=== PATIENT | male | born 1945 | race Caucasian/White ===

== ENCOUNTER 2017-10-27 15:17 | Emergency (ER) | payer MEDICARE, BC ==
--- NOTE | 2017-10-27 17:00 | RAD ---
RIGHT ANKLE THREE VIEWS: History: 72-year-old male with right ankle pain following an injury, trip and fall. FINDINGS: There is diffuse soft tissue swelling medially and laterally. Severe degenerative changes of the ankl e joint, subtalar joints, and mid tarsals joints as well as prominent calcaneal plantar and Achilles enthesophytes. There are some tiny punctate minimally opaque nodular densities in the region of the a nterior tibiotalar joint, possibly multiple intraarticular bodies. No evidence for acute fracture or dislocation. The tibiotalar joint is slightly asymmetric in its appearance but I feel this is probabl y related to degenerative changes rather than acute injury. 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 Probable small intraarticular bodies. No overt acute fracture. Some asymmetry of the tibiotalar joint and ankle mortise, probably from degenerative origin. If the patient has ankle instability or p ersistent or worsening ankle pain, short term follow up study and/or additional imaging with MRI is r ecommended. POS: MARY
== END 2017-10-27 17:05 | disposition home or self-care (01) ==
LOC: ERS 15:17
DX: S93.401A Sprain of unspecified ligament of right ankle, initial encounter (principal); E78.5 Hyperlipidemia, unspecified; I10 Essential (primary) hypertension; X50.9XXA Other and unspecified overexertion or strenuous movements or postures, initial encounter

== ENCOUNTER 2018-03-04 06:21 | Emergency (ER) | payer MEDICARE, BC, OTHER ==
--- NOTE | 2018-03-04 07:55 | CT ---
CT BRAIN WITHOUT CONTRAST: Date: 03/04/18 HISTORY: Level II trauma, headache, neck pain. FINDINGS: Comparison made with exam of 09/12/16. 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 No evidence of acute infarct, hemorrhage, midline shift, or abnormal extra-axial fluid collections are seen. Ventri cular size is appropriate and the basilar cisterns are patent. The bony calvarium is intact. There is mucosal disease in the paranasal sinuses. IMPRESSION: No CT evidence of acute intracranial process. POS: OFF
--- NOTE | 2018-03-04 08:04 | CT ---
CT CERVICAL SPINE WITH CORONAL AND SAGITTAL REFORMATIONS: Date: 03/04/18 HISTORY: Level II trauma, pain in neck. FINDINGS/IMPRESSION: Multilevel degenerative changes are present in the cervical spine. No acute fracture or subluxation i s identified. POS: OFF
== END 2018-03-04 08:30 | disposition home or self-care (01) ==
LOC: ERS 06:21
DX: S16.1XXA Strain of muscle, fascia and tendon at neck level, initial encounter (principal); E78.5 Hyperlipidemia, unspecified; I10 Essential (primary) hypertension; V49.9XXA Car occupant (driver) (passenger) injured in unspecified traffic accident, initial encounter
CPT/HCPCS: 70450; 72125; G0390

== ENCOUNTER 2020-07-22 11:21 | Emergency (ER) | payer MEDICARE, BC ==
[2020-07-22 12:07] LABS: #Basophils 0.1 thou/uL (0.0-0.2); #Eosinphils 0.1 thou/uL (0.0-0.7); #Lymphocytes 2.1 thou/uL (1.20-3.40); #Monocytes 0.8 thou/uL (0.11-0.59); #Neutrophils 10.9 thou/uL (1.40-6.50); %Basophils 0.6 % (0.0-1.0); %Lymphocytes 14.6 % (21.0-51.0); %Monocytes 5.8 % (0.0-10.0); %Neutrophils 78.1 % (42.0-75.0); Hemoglobin 13.2 g/dL (14.0-18.0); Mean Corpuscular HGB CONC 32.1 g/dL (32.0-36.0); Mean Corpuscular Hemoglobin 30.4 pg (27.0-31.0); Mean Corpuscular Volume 94.7 fL (78.0-98.0); Mean Platelet Volume 7.8 fL (7.4-10.4); Platelet Count 340 thou/uL (130-400); RBC Distribution Width 11.3 % (11.5-14.5); Red Blood Cell (RBC) Count 4.34 mill/uL (4.70-6.10)
[2020-07-22] MEDS ORDERED: traMADol HCl 50 MG TAB ONE (12:14)
--- NOTE | 2020-07-22 12:17 | RAD ---
EXAM: Portable chest PROVIDED CLINICAL HISTORY: Syncope COMPARISON: 07/14/2020 FINDINGS: Cardiac and mediastinal silhouette is within normal limits. No focal consolidation, pleural fluid or pneumothorax evident. IMPRESSION: No evidence for an acute cardiopulmonary process.
[2020-07-22 12:25] LABS: ALT (SGPT) 54 U/L (8-55); AST (SGOT) 37 U/L (5-34); Albumin 3.4 g/dL (3.4-4.8); Alkaline Phosphatase 119 U/L (40-110); Anion Gap 13 mmol/L (10-20); BUN (Urea Nitrogen) 32 mg/dL (8.4-25.7); Bilirubin, Total 0.8 mg/dL (0.2-1.2); CK (CPK) 49 U/L (30-200); Calc. Creatinine Clearance 0 mL/min (70-130); Calcium 9.6 mg/dL (7.8-10.44); Carbon Dioxide 24 mmol/L (23-31); Chloride 105 mmol/L (98-107); Estimated GFR-MDRD 58; Globulin 3.6 g/dL (2.4-3.5); Glucose 122 mg/dL (83-110); Potassium 4.1 mmol/L (3.5-5.1); Sodium 138 mmol/L (136-145)
== END 2020-07-22 14:40 ==
LOC: ERS 11:21
DX: R55 Syncope and collapse (principal); E11.9 Type 2 diabetes mellitus without complications; K21.9 Gastro-esophageal reflux disease without esophagitis; E78.5 Hyperlipidemia, unspecified; E78.00 Pure hypercholesterolemia, unspecified; I10 Essential (primary) hypertension; Z79.82 Long term (current) use of aspirin; Z79.899 Other long term (current) drug therapy
CPT/HCPCS: 36415; 71045; 80053; 82550; 84484; 85025; 93005; 94760

== ENCOUNTER 2022-09-28 21:09 | Emergency (ER) | payer MEDICARE, BC ==
[~2022-09-28 21:09] MED LIST: Iopamidol-370 76% 500 ML 1 ML ONE
[2022-09-28 22:24] LABS: #Basophils 0.1 thou/uL (0.0-0.2); #Eosinphils 0.1 thou/uL (0.0-0.7); #Lymphocytes 2.2 thou/uL (1.20-3.40); #Monocytes 0.9 thou/uL (0.11-0.59); #Neutrophils 10.8 thou/uL (1.40-6.50); %Basophils 0.7 % (0.0-1.0); %Eosinophils 0.8 % (0.0-10.0); %Lymphocytes 15.3 % (21.0-51.0); %Monocytes 6.5 % (0.0-10.0); %Neutrophils 76.7 % (42.0-75.0); Hemoglobin 13.6 g/dL (14.0-18.0); Mean Corpuscular HGB CONC 32.9 g/dL (32.0-36.0); Mean Corpuscular Hemoglobin 30.3 pg (27.0-31.0); Mean Corpuscular Volume 92.3 fl (78.0-98.0); Mean Platelet Volume 7.1 fL (7.4-10.4); Platelet Count 248 thou/uL (130-400); RBC Distribution Width 12.2 % (11.5-14.5); Red Blood Cell (RBC) Count 4.48 mill/uL (4.70-6.10); White Blood Cell (WBC) Count 14.2 thou/uL (4.8-10.8)
[2022-09-28 23:13] LABS: Bilirubin Negative (Negative); Blood, Urine Trace (Negative); Clarity Turbid (Clear); Glucose, Urine (Dipstick) 30 mg/dL (Negative); Ketone, Urine Negative (Negative); Leukocyte 500 Leu/uL (Negative); Nitrite 1+ (Negative); Protein, Urine (Dipstick) Negative (Neg-Trace); Specific Gravity, Urine 1.015 (1.002-1.036); Squamous Epithelial 0-3 HPF (0-3); Urobilinogen Normal mg/dL (Less than 2); WBC/HPF Greater than 50 HPF (0-3); pH, Urine 5.5 (5.0-9.0)
[2022-09-28 23:15] LABS: Bacteria/HPF 1+ HPF (None Seen)
[2022-09-28] MEDS ORDERED: cefTRIAXone\\ROCEPHIN 1 GM VIAL ONE (23:46)
[2022-09-29 00:01] LABS: ALT (SGPT) 29 U/L (8-55); AST (SGOT) 21 U/L (5-34); Albumin 3.6 g/dL (3.4-4.8); Alkaline Phosphatase 100 U/L (40-110); Anion Gap 12 mmol/L (10-20); BUN (Urea Nitrogen) 21 mg/dL (8.4-25.7); Bilirubin, Total 0.7 mg/dL (0.2-1.2); Calc. Creatinine Clearance 0 mL/min (70-130); Calcium 9.4 mg/dL (7.8-10.44); Carbon Dioxide 24 mmol/L (23-31); Chloride 102 mmol/L (98-107); Estimated GFR 42; Globulin 3.4 g/dL (2.4-3.5); Glucose 219 mg/dL (83-110); Potassium 4.3 mmol/L (3.5-5.1); Sodium 134 mmol/L (136-145)
[2022-09-29] MEDS ORDERED: Lidocaine Viscous Sol 2% 15 ml UD Cup ONE (02:56)
[2022-09-29] MEDS ORDERED: Mag-Al 1200 mg/1200 mg/30 ML UDCUP ONE (02:56)
== END 2022-09-29 02:03 ==
LOC: ERS 21:09
DX: N39.0 Urinary tract infection, site not specified (principal); E11.9 Type 2 diabetes mellitus without complications; K21.9 Gastro-esophageal reflux disease without esophagitis; E78.00 Pure hypercholesterolemia, unspecified; I10 Essential (primary) hypertension
CPT/HCPCS: 74177; 80053; 81003; 81015; 83605; 83880; 84484; 85025; 93005; 96365; J0696; Q9967

== ENCOUNTER 2022-09-30 14:07 | Inpatient (IN) | payer MEDICARE, BC ==
[2022-09-30 16:46] LABS: #Eosinphils 0.1 thou/uL (0.0-0.7); #Monocytes 1.3 thou/uL (0.11-0.59); #Neutrophils 10.9 thou/uL (1.40-6.50); %Basophils 0.2 % (0.0-1.0); %Eosinophils 0.6 % (0.0-10.0); %Lymphocytes 19.4 % (21.0-51.0); %Monocytes 8.3 % (0.0-10.0); %Neutrophils 71.4 % (42.0-75.0); Mean Corpuscular HGB CONC 32.7 g/dL (32.0-36.0); Mean Corpuscular Hemoglobin 30.3 pg (27.0-31.0); Mean Corpuscular Volume 92.7 fl (78.0-98.0); Mean Platelet Volume 7.1 fL (7.4-10.4); Platelet Count 253 10x3/uL (130-400); RBC Distribution Width 12.6 % (11.5-14.5); Red Blood Cell (RBC) Count 4.28 mill/uL (4.70-6.10); White Blood Cell (WBC) Count 15.3 10x3/uL (4.8-10.8)
[2022-09-30 17:00] LABS: INR-International Normal Ratio 1.1; Prothrombin Time 14.4 sec (12.0-14.7)
[2022-09-30 17:01] LABS: PTT 26.8 sec (22.9-36.1)
[2022-09-30 17:08] LABS: ALT (SGPT) 31 U/L (8-55); AST (SGOT) 25 U/L (5-34); Albumin 3.4 g/dL (3.4-4.8); Alkaline Phosphatase 91 U/L (40-110); Anion Gap 13 mmol/L (10-20); BUN (Urea Nitrogen) 27 mg/dL (8.4-25.7); Bilirubin, Total 0.8 mg/dL (0.2-1.2); Calc. Creatinine Clearance 0 mL/min (70-130); Calcium 9.2 mg/dL (7.8-10.44); Carbon Dioxide 25 mmol/L (23-31); Chloride 99 mmol/L (98-107); Estimated GFR 40; Glucose 175 mg/dL (83-110); Lipase 18 U/L (8-78); Potassium 4.3 mmol/L (3.5-5.1); Protein, Total 6.4 g/dL (5.8-8.1); Sodium 133 mmol/L (136-145)
[2022-09-30] MEDS ORDERED: Pantoprazole 80 MG, Admixture Fee 1 EACH in Sodium Chloride 0.9% 100 ML IVPB SCH (18:15)
[2022-09-30] MEDS ORDERED: Ondansetron PF 4 MG/2 ML Vial IVP PRN ×2 (18:19→18:30)
[2022-09-30] MEDS ORDERED: Senokot S 8.6-50 MG TAB PO PRN (18:19)
[2022-09-30] MEDS ORDERED: Guaifenesin DM 100-10/5 ML UDCUP PO PRN (18:19)
[2022-09-30] MEDS ORDERED: Bisacodyl 10 MG SUPP PR PRN (18:22)
[2022-09-30] MEDS ORDERED: Milk Of Magnesia 30 ML UDCUP PO SCH (18:30)
[2022-09-30] MEDS ORDERED: Acetaminophen 325 MG TAB PO PRN (18:30)
[2022-09-30] MEDS ORDERED: Ondansetron ODT 4 MG TAB SL PRN (18:30)
[2022-09-30] MEDS: Simvastatin 10 MG TAB PO SCH (21:14)
[2022-09-30] MEDS: Sodium Chloride 0.9% 1,000 ML IV SCH (21:18)
[2022-09-30] MEDS: Pantoprazole 40 MG VIAL IVP SCH (21:18)
[2022-09-30 21:28] VITALS: BMI 35.4
[2022-09-30] MEDS ORDERED: Dextrose 50% Abboject 50 ML SYRINGE SLOW IVP PRN (21:52)
[2022-09-30] MEDS ORDERED: HumaLOG 300 UNITS/3 ML VIAL SC PRN ×2 (21:52)
[2022-09-30] MEDS ORDERED: Dextrose 5% in Water 1,000 ML IV PRN (21:52)
[2022-10-01] MEDS: Sodium Chloride 0.9% 1,000 ML IV SCH ×2 (02:40→15:42)
[2022-10-01 06:35] LABS: #Eosinphils 0.2 thou/uL (0.0-0.7); #Lymphocytes 2.8 thou/uL (1.20-3.40); #Neutrophils 6.3 thou/uL (1.40-6.50); %Basophils 0.4 % (0.0-1.0); %Eosinophils 1.6 % (0.0-10.0); %Lymphocytes 27.6 % (21.0-51.0); %Monocytes 9.5 % (0.0-10.0); %Neutrophils 60.9 % (42.0-75.0); Hemoglobin 12.2 g/dL (14.0-18.0); Mean Corpuscular HGB CONC 32.4 g/dL (32.0-36.0); Mean Corpuscular Volume 92.6 fl (78.0-98.0); Mean Platelet Volume 7.3 fL (7.4-10.4); Platelet Count 246 10x3/uL (130-400); RBC Distribution Width 12.6 % (11.5-14.5); Red Blood Cell (RBC) Count 4.07 mill/uL (4.70-6.10); White Blood Cell (WBC) Count 10.3 10x3/uL (4.8-10.8)
[2022-10-01 07:03] LABS: Anion Gap 13 mmol/L (10-20); BUN (Urea Nitrogen) 27 mg/dL (8.4-25.7); Calc. Creatinine Clearance 68 mL/min (70-130); Calcium 8.9 mg/dL (7.8-10.44); Carbon Dioxide 25 mmol/L (23-31); Chloride 101 mmol/L (98-107); Estimated GFR 38; Glucose 151 mg/dL (83-110); Sodium 135 mmol/L (136-145)
[2022-10-01] MEDS ORDERED: Senokot S 8.6-50 MG TAB PO SCH (07:15)
[2022-10-01] MEDS: Pantoprazole 40 MG VIAL IVP SCH ×2 (08:39→21:58)
[2022-10-01] MEDS: Lisinopril 20 MG TAB PO SCH (08:46)
[2022-10-01] MEDS: Thiamine 100 MG TAB PO SCH (08:52)
[2022-10-01] MEDS: Polyethylene Glycol 3350 17 GM Packet PO SCH ×2 (08:52→10:00)
[2022-10-01] MEDS: Folic Acid 1 MG TAB PO SCH (08:52)
[2022-10-01] MEDS: Bupropion 150 MG XL TAB PO SCH (08:53)
[2022-10-01] MEDS ORDERED: Verapamil 120 MG TAB PO SCH (09:00)
[2022-10-01] MEDS ORDERED: Bisacodyl 10 MG SUPP PR SCH (15:15)
[2022-10-01] MEDS ORDERED: Fleet Enema 133 ML BOT PR SCH (15:15)
[2022-10-01] MEDS ORDERED: Bisacodyl 10 MG SUPP PR PRN (15:24)
[2022-10-01] MEDS: Carvedilol 6.25 MG TAB PO SCH (17:15)
[2022-10-01] MEDS: Simvastatin 10 MG TAB PO SCH (21:57)
[2022-10-02 06:10] LABS: #Eosinphils 0.2 thou/uL (0.0-0.7); #Lymphocytes 2.7 thou/uL (1.20-3.40); #Monocytes 0.8 thou/uL (0.11-0.59); #Neutrophils 4.9 thou/uL (1.40-6.50); %Basophils 0.5 % (0.0-1.0); %Eosinophils 2.4 % (0.0-10.0); %Lymphocytes 31.2 % (21.0-51.0); %Monocytes 9.5 % (0.0-10.0); %Neutrophils 56.4 % (42.0-75.0); Hemoglobin 11.5 g/dL (14.0-18.0); Mean Corpuscular HGB CONC 32.7 g/dL (32.0-36.0); Mean Corpuscular Hemoglobin 30.4 pg (27.0-31.0); Mean Corpuscular Volume 93.1 fl (78.0-98.0); Platelet Count 213 10x3/uL (130-400); RBC Distribution Width 12.6 % (11.5-14.5); Red Blood Cell (RBC) Count 3.79 mill/uL (4.70-6.10); White Blood Cell (WBC) Count 8.7 10x3/uL (4.8-10.8)
[2022-10-02 06:31] LABS: ALT (SGPT) 45 U/L (8-55); AST (SGOT) 36 U/L (5-34); Albumin 3.1 g/dL (3.4-4.8); Alkaline Phosphatase 87 U/L (40-110); Anion Gap 11 mmol/L (10-20); BUN (Urea Nitrogen) 23 mg/dL (8.4-25.7); Bilirubin, Total 0.6 mg/dL (0.2-1.2); Calc. Creatinine Clearance 70 mL/min (70-130); Calcium 8.7 mg/dL (7.8-10.44); Carbon Dioxide 24 mmol/L (23-31); Chloride 105 mmol/L (98-107); Estimated GFR 40; Globulin 2.9 g/dL (2.4-3.5); Glucose 127 mg/dL (83-110); Potassium 4.2 mmol/L (3.5-5.1); Sodium 136 mmol/L (136-145)
[2022-10-02] MEDS: Folic Acid 1 MG TAB PO SCH (08:24)
[2022-10-02] MEDS: Carvedilol 6.25 MG TAB PO SCH ×2 (08:24→17:09)
[2022-10-02] MEDS: Thiamine 100 MG TAB PO SCH (08:24)
[2022-10-02] MEDS: Bupropion 150 MG XL TAB PO SCH (08:24)
[2022-10-02] MEDS: Lisinopril 20 MG TAB PO SCH (08:25)
[2022-10-02] MEDS: Sodium Chloride 0.9% 1,000 ML IV SCH (08:25)
[2022-10-02] MEDS: Pantoprazole 40 MG VIAL IVP SCH ×2 (08:25→21:50)
[2022-10-02] MEDS: Polyethylene Glycol 3350 17 GM Packet PO SCH (08:25)
[2022-10-02] MEDS: Simvastatin 10 MG TAB PO SCH (21:50)
[2022-10-03] MEDS: Sodium Chloride 0.9% 1,000 ML IV SCH (05:09)
[2022-10-03] MEDS: Folic Acid 1 MG TAB PO SCH (07:59)
[2022-10-03] MEDS: Bupropion 150 MG XL TAB PO SCH (07:59)
[2022-10-03] MEDS: Carvedilol 6.25 MG TAB PO SCH ×2 (07:59→16:54)
[2022-10-03] MEDS: Lisinopril 20 MG TAB PO SCH (07:59)
[2022-10-03] MEDS: Polyethylene Glycol 3350 17 GM Packet PO SCH (08:00)
[2022-10-03] MEDS: Thiamine 100 MG TAB PO SCH (08:00)
[2022-10-03] MEDS: Pantoprazole 40 MG VIAL IVP SCH (08:47)
[2022-10-03] MEDS ORDERED: FLU VACC QS2022-23(65YR UP)/PF 240 MCG/0.7 ML SYRINGE IM ONE (09:00)
[2022-10-03] MEDS ORDERED: FENTANYL 50 MCG/ML 1 ML VIAL ONE (11:20)
[2022-10-03] MEDS ORDERED: Lidocaine Viscous Sol 2% 15 ml UD Cup ONE (11:26)
[2022-10-03] MEDS ORDERED: PROPOFOL 200 MG/20 ML VIAL ONE (11:44)
[2022-10-03 12:54] VITALS: TEMP 98.6
[2022-10-03 16:55] VITALS: BP 146/76
== END 2022-10-03 18:10 | DRG 378 ==
LOC: ERS 14:07 → T4-A 18:12 → OBSVTOIN 10-02 14:53
PROVIDERS: ADMIT Internal Medicine; ATTEND Internal Medicine
PROC: 0DB58ZX Excision of Esophagus, Via Natural or Artificial Opening Endoscopic, Diagnostic (ICD-10-PCS; principal; 2022-10-03)
DX: K92.0 Hematemesis (principal); K22.10 Ulcer of esophagus without bleeding; N17.9 Acute kidney failure, unspecified; N39.0 Urinary tract infection, site not specified; Z20.822 Contact with and (suspected) exposure to COVID-19; K21.00 Gastro-esophageal reflux disease with esophagitis, without bleeding; K44.9 Diaphragmatic hernia without obstruction or gangrene; M16.11 Unilateral primary osteoarthritis, right hip; K59.01 Slow transit constipation; N18.30 Chronic kidney disease, stage 3 unspecified; E78.5 Hyperlipidemia, unspecified; I12.9 Hypertensive chronic kidney disease with stage 1 through stage 4 chronic kidney disease, or unspecified chronic kidney disease; E66.01 Morbid (severe) obesity due to excess calories; E11.9 Type 2 diabetes mellitus without complications; I25.10 Atherosclerotic heart disease of native coronary artery without angina pectoris; E78.00 Pure hypercholesterolemia, unspecified; K21.9 Gastro-esophageal reflux disease without esophagitis; Z82.49 Family history of ischemic heart disease and other diseases of the circulatory system; Z28.82 Immunization not carried out because of caregiver refusal; Z86.73 Personal history of transient ischemic attack (TIA), and cerebral infarction without residual deficits; Z79.899 Other long term (current) drug therapy; Z68.35 Body mass index [BMI] 35.0-35.9, adult; Z90.49 Acquired absence of other specified parts of digestive tract
CPT/HCPCS: 36415; 36416; 72192; 74177; 80048; 80053; 81003; 81015; 83605; 83690; 83880; 84484; 85025; 85610; 85730; 88305; 88312; 93005; 93970; 94760; 96365; 96374; 96376; C9113; G0378; J0696; J2704; J3010; J7050; Q9967; U0003; U0005